=== PATIENT | female | born 1985 | race Caucasian/White ===

== ENCOUNTER → 2020-11-25 | Outpatient (CLI) | payer BC ==
[~2020-11-25] MED LIST: MOTRIN 800800 MG/TAB PO; PRENATAL; PROBIOTIC BLEN1 EACH PO; ZOLOFT 50MG50 MG PO
== END ==
LOC: ZCOL.LAB 09:40
DX: Z20.822 Contact with and (suspected) exposure to COVID-19 (principal)

== ENCOUNTER 2020-11-30 06:22 | Inpatient (IN) | payer BC ==
[2020-11-30] VITALS (34 sets, daily range): BP systolic 88–1003; BP diastolic 50–96; PULSE 59–90; TEMP 97.4–98.5
[~2020-11-30] VITALS: Ht 172.7 cm; Wt 90.5 kg
--- NOTE | 2020-11-30 06:30 | NUR ---
Pt arrived on unit ambulatory for scheduled induction of labor. Pt denies any contractions, leaking of fluid or vaginal bleeding and reports normal movement. EFM and toco monitors started. Vital signs WNL. Oriented to room and call light within reach. Plan of care for induction reviewed with pt and . Both verbalized an understanding, agreed with the plan and state no questions or concerns at this time.
--- NOTE | 2020-11-30 07:00 | NUR ---
Dr. Kay at the bedside. FHR tracing reviewed. SVE 2-3/50/-3. AROM with large amount of clear fluid per Dr. Kay.
[2020-11-30 07:47] LABS: BASO % 0.4 % (0.0-2.0); EOS # 0.2 (0.0-0.7); EOS % 2.6 % (0-4.0); GRAN # 4.7 (1.4-6.5); GRAN % 61.7 % (42.2-75.2); HEMATOCRIT 38.7 % (37.0-47.0); HEMOGLOBIN 12.6 g/dl (12.5-16.0); LYMPH % 25.9 % (20.0-51.0); MEAN CELL VOLUME 92 fl (80.0-100.0); MEAN CORPUSCULAR HEMOGLOBIN 30 pg (27.0-31.0); MEAN CORPUSCULAR HGB CONC 33 g/dl (33.0-37.0); MEAN PLATELET VOLUME 10.9 fl (7.4-10.4); MONO # 0.6 (0.1-0.6); MONO % 8.5 % (1.7-9.3); PLATELET COUNT 172 K/mm3 (130-400); RED BLOOD COUNT 4.22 M/mm3 (4.10-5.30)
[2020-11-30] MEDS ORDERED: PRENATAL (09:36)
[2020-11-30] MEDS ORDERED: PROBIOTIC BLEN1 EACH PO (09:37)
[2020-11-30] MEDS ORDERED: ZOLOFT 50MG50 MG PO (09:37)
--- NOTE | 2020-11-30 13:11 | NUR ---
1311- SVE by this RN. /+1. Dr. Kay notified and heading to the hospital for pending delivery. 1333- Dr. Kay at the bedside. Pt set up for delivery. 1338- Pushing started. 1339- of viable female . placed on mom's abdomen. Cords clamped and cut. Care of the given to nursery RN at the bedside. 1343- of placenta. Pitocin started at 333ml/hr per order and protocol. Fundus firm and lochia WNL.
[2020-12-01 05:10] VITALS: BP 101/62; PULSE 60; TEMP 97.3
[2020-12-01 06:40] VITALS: BP 105/74; PULSE 69; TEMP 97.8
--- NOTE | 2020-12-01 09:52 | NUR ---
Initial visit; Patient thanked Tassel Maker for offering congratulations and God's blessings for the of her daughter. Sobeida has two little boys at home who are anxiously looking forward to meeting their new sister. Tassel Maker thanked Sobeida for choosing [place].
[2020-12-01 13:15] VITALS: BP 117/75; PULSE 68; TEMP 97.6
[2020-12-01 19:40] VITALS: BP 116/69; PULSE 64; TEMP 97.6
[2020-12-02] MEDS ORDERED: MOTRIN 800800 MG/TAB PO (08:35)
[2020-12-02 09:00] VITALS: BP 117/83; PULSE 70; TEMP 98.1
--- NOTE | 2020-12-02 11:00 | NUR ---
Discharge instructions reviewed with pt and at the bedside. Both verbalized an understanding, agreed with the plan and state no questions or concerns at this time.
== END 2020-12-02 11:20 | disposition home or self-care (01) | DRG 807 ==
LOC: LDR 06:22 → OB 16:41
PROVIDERS: ADMIT Obstetrics & Gynecology
PROC: 10E0XZZ Delivery of Products of Conception, External Approach (ICD-10-PCS; principal; 2020-11-30)
PROC: 10907ZC Drainage of Amniotic Fluid, Therapeutic from Products of Conception, Via Natural or Artificial Opening (ICD-10-PCS; 2020-11-30)
DX: O48.0 Post-term pregnancy (principal); Z37.0 Single live birth; O99.344 Other mental disorders complicating childbirth; F32.9 Major depressive disorder, single episode, unspecified; Z3A.40 40 weeks gestation of pregnancy
CPT/HCPCS: J2400; J2590; J7120